=== PATIENT | female | born 1985 | race Hispanic/Latino ===

== ENCOUNTER 2019-10-02 06:50 | Inpatient (IN) | payer BC ==
[2019-10-02] MEDS ORDERED: Acetaminophen 500 MG TAB PO PRN (07:15)
[2019-10-02] MEDS ORDERED: hydrALAZINE 20 MG/ML VIAL SLOW IVP PRN ×2 (07:15→19:20)
[2019-10-02] MEDS ORDERED: Diphenoxylate HCl/Atropine Tablet PO PRN (07:15)
[2019-10-02] MEDS ORDERED: Lidocaine 1% (PF) 30 ML VIAL SC PRN (07:15)
[2019-10-02] MEDS ORDERED: Methylergonovine 0.2 MG/ML VIAL IM PRN (07:15)
[2019-10-02] MEDS ORDERED: Misoprostol 200 MCG TAB PR PRN (07:15)
[2019-10-02] MEDS ORDERED: HYDROcodone/Acetaminophen 5/325 mg Tablet PO PRN (07:15)
[2019-10-02] MEDS ORDERED: Butorphanol Tartrate 1 MG/ML VIAL SLOW IVP PRN (07:15)
[2019-10-02] MEDS ORDERED: Penicillin G Potassium 5 MILL.UNITS in Sodium Chloride 0.9% 100 ML IVPB SCH (07:15)
[2019-10-02] MEDS ORDERED: Ondansetron PF 4 MG/2 ML Vial IVP PRN ×2 (07:15→14:06)
[2019-10-02] MEDS ORDERED: Carboprost 250 MCG/ML AMP IM PRN (07:15)
[2019-10-02] MEDS ORDERED: NS / Oxytocin 40 units/1000ml 1,000 ML IV PRN (07:15)
[2019-10-02] MEDS ORDERED: Ibuprofen 800 MG TAB PO PRN (07:15)
[2019-10-02] MEDS ORDERED: Promethazine HCl 25 MG/ML VIAL IM PRN ×2 (07:15→14:06)
[2019-10-02] MEDS ORDERED: diphenhydrAMINE 25 MG CAP PO PRN (07:20)
--- NOTE | 2019-10-02 07:23 | PDOC.LDHP ---
Labor and Delivery H&P Chief complaint: scheduled induction HPI: 34 yo @ 38w3d by 13 week CRL c/w who presents for IOL due to ICP; BA 28 Current gestational age (weeks): 38 Due date: 10/13/19 Dating criteria: first trimester ultrasound Grav: 3 Para: 2 OB History Details: 2 SVDs Current complications: other (ICP) Abnormal US findings: No Past Medical History: Migraines Current medications: pre-balbina vitamins Previous surgical history: appendectomy, other (Tonsillectomy) Allergies/Adverse Reactions: Allergies Allergy/AdvReac Type Severity Reaction Status Date / Time influenza virus vaccine, Allergy Verified 09/01/13 09:15 specific [Influenza Virus Vacc,Specific] Social history: none - Physical Exam Vital signs reviewed and normal: yes General: NAD Heart: RRR Lungs: nonlabored breathing Abdomen: gravid Extremeties: no edema FHT: category 1 (140s, mod eamon, +accels, no decel) [place] contractions every: rare - Vaginal Exam cm dilated: 2 (per RN) Effacement: 50% Station: -2 - OB Labs Blood type: O RH: positive Antibody Screen: negative HIV: negative RPR: negative HEPSAg: negative 1 hour GCT: negative GBS: positive Urine drug screen: negative Rubella: immune Additional Labs: NIPT and msAFP wnl - Assessment 34 yo @ 38w3d IOL for ICP GBS + - Plan Plan: admit to L&D, GBS antibiotic prophylaxis, informed consent obtained, anesthesia consult for pain management -: Start pitocin for IOL GBS PPX
[2019-10-02] MEDS: Lactated Ringer's 1,000 ML IV SCH ×2 (08:10→20:12)
[2019-10-02] MEDS: NS w/ Oxytocin 10 units 500 ML IV SCH (08:11)
[2019-10-02 08:14] LABS: Hemoglobin 12.5 g/dL (12.0-16.0); Mean Corpuscular HGB CONC 34.4 g/dL (32.0-36.0); Mean Corpuscular Hemoglobin 31.4 pg (27.0-31.0); Mean Corpuscular Volume 91.4 fL (78.0-98.0); Mean Platelet Volume 9.1 fL (7.4-10.4); Platelet Count 196 thou/uL (130-400); RBC Distribution Width 12.6 % (11.5-14.5); Red Blood Cell (RBC) Count 3.97 mill/uL (4.20-5.40); White Blood Cell (WBC) Count 7.4 thou/uL (4.8-10.8)
[2019-10-02 08:27] LABS: INR-International Normal Ratio 0.9; PTT 29.5 SEC (22.9-36.1); Prothrombin Time 12.5 SEC (12.0-14.7)
[2019-10-02 08:36] LABS: ALT (SGPT) 27 U/L (8-55); AST (SGOT) 25 U/L (5-34); Alkaline Phosphatase 190 U/L (40-110); Anion Gap 12 mmol/L (10-20); BUN (Urea Nitrogen) 13 mg/dL (7.0-18.7); Bilirubin, Total 0.6 mg/dL (0.2-1.2); Calc. Creatinine Clearance 0 mL/min (70-130); Calcium 8.3 mg/dL (7.8-10.44); Carbon Dioxide 20 mmol/L (22-29); Chloride 109 mmol/L (98-107); Estimated GFR-MDRD Greater than 90; Globulin 2.8 g/dL (2.4-3.5); Glucose 83 mg/dL (70-105); Potassium 3.9 mmol/L (3.5-5.1); Protein, Total 5.8 g/dL (6.0-8.3); Sodium 137 mmol/L (136-145)
[2019-10-02 08:55] LABS: Syphilis Antibody Nonreactive (Nonreactive); Syphilis Antibody Index 0.04 S/CO (<1.00 Non-Reactive)
[2019-10-02 08:56] LABS: HBSAg Index 0.41 S/CO (0-0.99); HIV (1/2) Antibody/Antigen Non-Reactive (NonReactive); HIV 1/2 INDEX 0.08 S/CO (<1.00); Hep B Surf Ag Non-Reactive S/CO (NonReactive)
[2019-10-02] MEDS ORDERED: Metoclopramide HCl 10 MG/2 ML VIAL IVP PRN (09:02)
[2019-10-02] MEDS: Penicillin G 2.5 MILL.units 2.5 MILL.UNITS in Premix Bag 1 BAG IVPB SCH ×3 (12:57→20:13)
--- NOTE | 2019-10-02 13:01 | PDOC.LDPN ---
Labor & Delivery Progress Note - Subjective Subjective: vaginal pressure - Objective Vital signs reviewed and normal: yes General: NAD Uterine fundus: non tender Dilation: 4 Effacement: 50% Station: -1 FHT: category 1 (140s, mod eamon, +accels, no decels ) [place] contractions every: q1-3 min AROM: clear fluid - Assessment (1) 38 weeks gestation of Code(s): Z3A.38 - 38 WEEKS GESTATION OF Current Visit: Yes Status : Acute (2) Cholestasis during Code(s): O26.619 - LIVER AND BILIARY TRACT DISORD IN , UNSP TRIMESTER; K83.1 - OBSTRUCTION OF BILE DUCT Current Visit: Yes Status: Acute (3) Encounter for induction of labor Code(s): Z34.90 - ENCNTR FOR SUPRVSN OF NORMAL , UNSP, UNSP TRIMESTER Current Visit: Yes Status: Acute Plan: continue plan of care
[2019-10-02] MEDS ORDERED: Fentanyl 4 mcg/Bup 0.1% Cadd 100 ML ONE (13:16)
[2019-10-02] MEDS ORDERED: Acetaminophen 325 MG TAB PO PRN (14:06)
[2019-10-02] MEDS ORDERED: diphenhydrAMINE 50 MG/ML VIAL IVP PRN (14:06)
[2019-10-02] MEDS ORDERED: Lactated Ringer's 500 ML IV PRN (14:06)
[2019-10-02] MEDS ORDERED: Naloxone HCl 0.4 mg/ml Vial IVP PRN ×2 (14:06)
[2019-10-02] MEDS ORDERED: Fentanyl 4 mcg/Bupivacaine 0.1% Cassette 100 ML EPIDURAL SCH (14:15)
[2019-10-02] MEDS ORDERED: Communication Order-Pharmacy FS SCH (14:15)
[2019-10-02] MEDS ORDERED: NS / Oxytocin 40 units/1000ml 1,000 ML ONE (14:46)
[2019-10-02] MEDS ORDERED: Lidocaine 1% (PF) 30 ML VIAL ONE (14:46)
--- NOTE | 2019-10-02 16:33 | PDOC.OPDEL ---
OB Operative/Delivery Note Delivery Dr/Surgeon: Annie Wang DO Pre-Delivery Diagnosis: medically indicated induction Procedure/Post Delivery Dx: spontaneous vaginal delivery Weeks gestation: 38 Anesthesia: epidural - Findings A Sex: male - 1 min: 9 - 5 min: 9 - Additional Findings/Plan Placenta delivered: spontaneous Repaired Obstetrical Laceration: 1st degree (and right labial laceration) Estimated blood loss: 500 cc Compilations/Other Findings: Normal appearing placenta. Clear amniotic fluid Apical prolapse with cervix at or below the introits after delivery Post delivery plan: routine recovery
[2019-10-02] MEDS ORDERED: Bisacodyl 10 MG SUPP PR PRN (19:20)
[2019-10-02] MEDS ORDERED: Benzocaine-Menthol 82.5 ML CAN TOP PRN (19:20)
[2019-10-02] MEDS ORDERED: Lanolin Ointment 7 GM TUBE TOP PRN (19:20)
[2019-10-02] MEDS ORDERED: NS / Oxytocin 40 units/1000ml 1,000 ML IV SCH (19:20)
[2019-10-02] MEDS ORDERED: Milk Of Magnesia 30 ML UDCUP PO PRN (19:20)
[2019-10-02] MEDS ORDERED: Ferrous Sulfate 325 MG TAB PO SCH (20:15)
[2019-10-02] MEDS: Docusate Calcium (SURFAK) 240 MG CAP PO SCH (20:24)
[2019-10-02] MEDS: Ibuprofen 800 MG TAB PO SCH (20:24)
[2019-10-03] MEDS: HYDROcodone/Acetaminophen 5/325 mg Tablet PO PRN ×3 (01:27→16:13)
[2019-10-03] MEDS: NS w/ Oxytocin 10 units 500 ML IV SCH (04:54)
[2019-10-03] MEDS: Ibuprofen 800 MG TAB PO SCH ×2 (04:58→13:57)
[2019-10-03 05:49] LABS: Hemoglobin 11.1 g/dL (12.0-16.0); Mean Corpuscular HGB CONC 32.9 g/dL (32.0-36.0); Mean Corpuscular Hemoglobin 30.9 pg (27.0-31.0); Mean Corpuscular Volume 93.7 fL (78.0-98.0); Mean Platelet Volume 9.3 fL (7.4-10.4); Platelet Count 170 thou/uL (130-400); RBC Distribution Width 12.8 % (11.5-14.5); Red Blood Cell (RBC) Count 3.58 mill/uL (4.20-5.40); White Blood Cell (WBC) Count 14.6 thou/uL (4.8-10.8)
[2019-10-03] MEDS: Docusate Calcium (SURFAK) 240 MG CAP PO SCH (08:31)
[2019-10-03] MEDS: Ferrous Sulfate 325 MG TAB PO SCH ×2 (08:32→16:15)
[2019-10-03] MEDS ORDERED: Prenatal Vitamin 1 TAB PO SCH (09:00)
--- NOTE | 2019-10-03 12:56 | PDOC.PP ---
Post Progress Note Post Day #: 1 Subjective: Doing well. No concerns. breast feeding. Minimal lochia PO intake tolerated: yes Flatus: yes Ambulation: yes Vital Signs (12 hours) Temp Pulse Resp BP Pulse Ox 10/03/19 12:02 97.8 F 59 L 20 114/58 L 10/03/19 08:04 97.8 F 58 L 20 113/60 10/03/19 08:00 98 10/03/19 04:50 98 F 56 L 16 117/60 10/03/19 01:15 98.2 F 56 L 16 100/53 L - Physical Examination General: NAD Cardiovascular: RRR Respiratory: non-labored breathing Abdominal: no distention, appropriately TTP Fundus firm & at: below umbilicus Extremities: negative homans (B) Neurological: no gross focal deficits Psychiatric: A&Ox3, normal affect Result Diagrams: 10/03/19 05:39 10/02/19 08:01 Additional Labs: Post Labs Blood Type O POSITIVE 10/02/19 08:01 Hep Bs Antigen Non-Reactive S/CO (NonReactive) 10/02/19 08:01 (1) 38 weeks gestation of Code(s): Z3A.38 - 38 WEEKS GESTATION OF Status: Resolved (2) Cholestasis during Code(s): O26.619 - LIVER AND BILIARY TRACT DISORD IN , UNSP TRIMESTER; K83.1 - OBSTRUCTION OF BILE DUCT Status: Resolved (3) Encounter for induction of labor Code(s): Z34.90 - ENCNTR FOR SUPRVSN OF NORMAL , UNSP, UNSP TRIMESTER Status: Resolved (4) Vaginal delivery Code(s): O80 - ENCOUNTER FOR FULL-TERM UNCOMPLICATED DELIVERY Status: Acute - Assessment/Plan PPD1 VSSAF Plan for d/c home today
[2019-10-03 17:33] VITALS: BP 114/68; TEMP 98.3
== END 2019-10-03 19:30 | disposition home or self-care (01) | DRG 805 ==
LOC: L&D 06:50 → 3SW 19:22 → EDSTATUS 10-14 06:48
PROVIDERS: ADMIT Obstetrics & Gynecology; ATTEND Obstetrics & Gynecology
PROC: 10E0XZZ Delivery of Products of Conception, External Approach (ICD-10-PCS; principal; 2019-10-02)
PROC: 3E033VJ Introduction of Other Hormone into Peripheral Vein, Percutaneous Approach (ICD-10-PCS; 2019-10-02)
PROC: 0HQ9XZZ Repair Perineum Skin, External Approach (ICD-10-PCS; 2019-10-02)
DX: O26.62 Liver and biliary tract disorders in childbirth (principal); K83.1 Obstruction of bile duct; Z37.0 Single live birth; O99.824 Streptococcus B carrier state complicating childbirth; Z3A.38 38 weeks gestation of pregnancy; O75.89 Other specified complications of labor and delivery; G43.909 Migraine, unspecified, not intractable, without status migrainosus; O70.0 First degree perineal laceration during delivery
CPT/HCPCS: 36415; 51702; 80053; 85027; 85610; 85730; 86780; 86850; 86900; 86901; 87340; 87389; J2001; J2540; J2590; J3490

== ENCOUNTER 2023-03-23 15:10 | Outpatient (CLI) | payer BC | END 2023-03-23 15:11 | disposition home or self-care (01) | LOC: RAD 15:10 | PROVIDERS: ATTEND Surgery | DX: M79.671 Pain in right foot (principal) ==

== ENCOUNTER 2023-09-07 08:19 | Outpatient (CLI) | payer BC | END 2023-09-07 08:20 | disposition home or self-care (01) | LOC: BICMAMMO 08:19 | PROVIDERS: ATTEND Nurse Practitioner Family | DX: N64.59 Other signs and symptoms in breast (principal); N60.01 Solitary cyst of right breast | CPT/HCPCS: 77066; G0279 ==